=== PATIENT | male | born 1935 | race Asian ===

== ENCOUNTER 2017-08-20 23:29 | Inpatient (IN) | payer OTHER ==
[2017-08-21] MEDS: SOD CHLORIDE 0.9% 1,000 ML IV ×4 (00:27→19:07)
[2017-08-21] MEDS: PIPER-TAZO 3.375 GM IV (PMX) 50 ML IVPB (00:27)
[2017-08-21 00:35] LABS: ADD MAN DIFF? NO
[2017-08-21 00:48] LABS: BASOPHILS % 0.1 % (0.0-2.0); HEMATOCRIT 32.6 % (42.0-52.0); HEMOGLOBIN 11.4 g/dl (14.0-18.0); LYMPHOCYTES # 0.8 10^3/ul (0.8-2.9); LYMPHOCYTES % 5.7 % (15.0-51.0); MEAN CORPUSCULAR HEMOGLOBIN 30.4 pg (29.0-33.0); MEAN CORPUSCULAR VOLUME 86.9 fl (82.0-101.0); MEAN PLATELET VOLUME 8.8 fl (7.4-10.4); MONOCYTE # 1.2 10^3/ul (0.3-0.9); MONOCYTES % 8.7 % (0.0-11.0); NEUTROPHIL # 11.7 10^3/ul (1.6-7.5); NEUTROPHILS % 84.9 % (39.0-77.0); PLATELET COUNT 255 10^3/UL (140-415); RED BLOOD COUNT 3.75 10^6/ul (4.70-6.10); RED CELL DISTRIBUTION WIDTH 13.4 % (11.5-14.5)
[2017-08-21 00:48] LABS: WHITE BLOOD COUNT 13.8 10^3/ul (4.8-10.8)
[2017-08-21 00:58] LABS: INR 0.89; PROTIME 12.1 Sec (11.9-14.9); PT RATIO 0.9
[2017-08-21 00:59] LABS: PARTIAL THROMBOPLASTIN TIME 25.2 Sec (25.0-35.0)
[2017-08-21 01:04] LABS: LACTIC ACID 2.2 mmol/L (0.5-2.0)
[2017-08-21 01:04] LABS: ALANINE AMINOTRANSFERASE 72 IU/L (13-69); ALBUMIN 3.8 g/dl (3.3-4.9); ALBUMIN/GLOBULIN RATIO 1.22; ALKALINE PHOSPHATASE 96 IU/L (42-121); ANION GAP 16 (8-16); ASPARTATE AMINO TRANSFERASE 55 IU/L (15-46); BILIRUBIN,INDIRECT 0.1 mg/dl (0-1.1); BILIRUBIN,TOTAL 0.1 mg/dl (0.2-1.3); BLOOD UREA NITROGEN 31 mg/dl (7-20); CALCIUM 8.9 mg/dl (8.4-10.2); CARBON DIOXIDE 23 mmol/L (21-31); CHLORIDE 96 mmol/L (97-110); CREATININE 0.82 mg/dl (0.61-1.24); GLUCOSE 102 mg/dl (70-220); SODIUM 131 mmol/L (135-144); TOTAL PROTEIN 6.9 g/dl (6.1-8.1)
[2017-08-21 01:15] LABS: B-TYPE NATRIURETIC PEPTIDE 528 PG/ML (0-450)
[2017-08-21 01:27] LABS: TROPONIN-I < 0.012 ng/ml (0.00-0.12)
[2017-08-21 03:34] LABS: ADD UMIC NO; UR ASCORBIC ACID NEGATIVE (NEGATIVE); UR BILIRUBIN (Dip) NEGATIVE (NEGATIVE); UR BLOOD (Dip) NEGATIVE (NEGATIVE); UR CLARITY CLEAR (CLEAR); UR COLOR YELLOW (YELLOW); UR GLUCOSE (Dip) NEGATIVE (NEGATIVE); UR KETONES (Dip) NEGATIVE (NEGATIVE); UR LEUKOCYTE ESTERASE (Dip) NEGATIVE Leu/ul (NEGATIVE); UR NITRITE (Dip) NEGATIVE (NEGATIVE); UR SPECIFIC GRAVITY (Dip) 1.017 (1.003-1.030); UR TOTAL PROTEIN (Dip) NEGATIVE (NEGATIVE); UR UROBILINOGEN (Dip) NEGATIVE (NEGATIVE)
[2017-08-21 03:38] LABS: LACTIC ACID 1.1 mmol/L (0.5-2.0)
[2017-08-21] MEDS ORDERED: ACETAMINOPHEN 325 MG TAB PO ×2 (04:00)
[2017-08-21] MEDS ORDERED: morphine 2 MG INJ IV (04:00)
[2017-08-21] MEDS ORDERED: QUETIAPINE 25 MG TAB PO (04:00)
[2017-08-21] MEDS ORDERED: ONDANSETRON 4 MG INJ IV ×2 (04:00)
[2017-08-21] MEDS ORDERED: VANCOMYCIN IV PER PHARMACY XX (04:00)
[2017-08-21] MEDS: IPRATROPIUM (NEB) 0.5 MG/2.5 ML AMP HHN (04:09)
[2017-08-21] MEDS: ALBUTEROL 0.083% (NEB) 2.5 MG/3 ML AMP HHN (04:09)
[2017-08-21] MEDS: CEFTRIAXONE 1 GM/50 ML (PMX) 50 ML IVPB (05:00)
[2017-08-21] MEDS ORDERED: NITROGLYCERIN (SL) 0.4 MG TAB (05:01)
[2017-08-21] MEDS: NITROGLYCERIN (SL) 0.4 MG TAB SL (05:06)
[2017-08-21 09:11] LABS: CREATINE KINASE 141 IU/L (23-200)
[2017-08-21 09:11] LABS: LACTIC ACID 1.1 mmol/L (0.5-2.0)
[2017-08-21 09:21] LABS: AMMONIA < 9 umol/l (9-30)
[2017-08-21 09:24] LABS: CK INDEX 4.8
[2017-08-21 09:25] LABS: CK-MB 6.81 ng/ml (0.0-2.4); TROPONIN-I < 0.012 ng/ml (0.00-0.12)
[2017-08-21] MEDS: VANCOMYCIN 1 GM in 250 ML IVPB (09:36)
[2017-08-21] MEDS: metroNIDAZOLE 500 MG/NS (PMX) 100 ML IVPB (09:37)
[2017-08-21] MEDS: AZITHROMYCIN 250 MG TAB PO (10:54)
[2017-08-21] MEDS ORDERED: ALBUTEROL 0.083% (NEB) 2.5 MG/3 ML AMP HHN (12:00)
[2017-08-21] MEDS: ALBUTEROL/IPRATROPIUM (NEB) 3 ML AMP HHN ×2 (13:24→20:17)
[2017-08-21 15:03] LABS: CREATINE KINASE 136 IU/L (23-200)
[2017-08-21 15:13] LABS: CK INDEX 5.1
[2017-08-21 15:20] LABS: CK-MB 6.92 ng/ml (0.0-2.4); TROPONIN-I < 0.012 ng/ml (0.00-0.12)
[2017-08-21] MEDS: predniSONE 20 MG TAB PO (17:58)
[2017-08-21] MEDS: LOSARTAN 50 MG TAB PO (23:10)
[2017-08-22] MEDS: ALBUTEROL/IPRATROPIUM (NEB) 3 ML AMP HHN ×3 (01:44→14:11)
[2017-08-22] MEDS: SOD CHLORIDE 0.9% 1,000 ML IV ×3 (05:24→06:04)
[2017-08-22] MEDS ORDERED: VANCOMYCIN 750 MG in DEXTROSE 5% 150 ML IVPB (07:00)
[2017-08-22 07:51] LABS: ADD MAN DIFF? NO
[2017-08-22 08:02] LABS: BASOPHILS % 0.2 % (0.0-2.0); EOSINOPHILS % 0.2 % (0.0-7.0); HEMATOCRIT 30.7 % (42.0-52.0); HEMOGLOBIN 10.7 g/dl (14.0-18.0); LYMPHOCYTES # 0.8 10^3/ul (0.8-2.9); LYMPHOCYTES % 13.9 % (15.0-51.0); MEAN CORPUSCULAR HEMOGLOBIN 30.4 pg (29.0-33.0); MEAN CORPUSCULAR HGB CONC 34.9 g/dl (32.0-37.0); MEAN CORPUSCULAR VOLUME 87.2 fl (82.0-101.0); MEAN PLATELET VOLUME 8.9 fl (7.4-10.4); MONOCYTE # 0.6 10^3/ul (0.3-0.9); MONOCYTES % 10.6 % (0.0-11.0); NEUTROPHIL # 4.1 10^3/ul (1.6-7.5); NEUTROPHILS % 73.8 % (39.0-77.0); PLATELET COUNT 231 10^3/UL (140-415); RED BLOOD COUNT 3.52 10^6/ul (4.70-6.10); RED CELL DISTRIBUTION WIDTH 13.5 % (11.5-14.5)
[2017-08-22 08:02] LABS: WHITE BLOOD COUNT 5.5 10^3/ul (4.8-10.8)
[2017-08-22] MEDS: predniSONE 20 MG TAB PO (08:23)
[2017-08-22] MEDS: AZITHROMYCIN 250 MG TAB PO (08:23)
[2017-08-22] MEDS: ASPIRIN 81 MG TAB PO (08:23)
[2017-08-22] MEDS: CLOPIDOGREL 75 MG TAB PO (08:23)
[2017-08-22] MEDS: LOSARTAN 50 MG TAB PO (08:24)
[2017-08-22 08:30] LABS: ANION GAP 13 (8-16); BLOOD UREA NITROGEN 12 mg/dl (7-20); CALCIUM 7.7 mg/dl (8.4-10.2); CARBON DIOXIDE 24 mmol/L (21-31); CHLORIDE 103 mmol/L (97-110); CREATININE 0.61 mg/dl (0.61-1.24); GLUCOSE 96 mg/dl (70-220); POTASSIUM 3.8 mmol/L (3.5-5.1); SODIUM 136 mmol/L (135-144)
[2017-08-22] MEDS ORDERED: TAMSULOSIN (SR) 0.4 MG CAP PO (21:00)
[2017-08-22] MEDS ORDERED: MONTELUKAST 10 MG TAB PO (21:00)
[2017-08-22] MEDS ORDERED: ATORVASTATIN 20 MG TAB PO (21:00)
[2017-08-23] MEDS ORDERED: INFLUENZA VIRUS VACCINE 0.5 ML (DISPENSING) IM* (09:00)
== END 2017-08-22 16:15 | disposition home or self-care (01) | DRG 948 ==
LOC: E/R 23:29 → MS3 08-21 03:45 → TEL 08-21 18:34
PROVIDERS: Legal Medicine
DX: R41.82 Altered mental status, unspecified (principal); J96.10 Chronic respiratory failure, unspecified whether with hypoxia or hypercapnia; Z99.81 Dependence on supplemental oxygen; J44.9 Chronic obstructive pulmonary disease, unspecified; T42.4X5A Adverse effect of benzodiazepines, initial encounter
CPT/HCPCS: 36415; 70450; 70551; 71045; 80048; 80053; 81003; 82140; 82550; 82553; 82962; 83605; 83880; 84484; 85025; 85610; 85730; 87040; 87081; 87086; 87400; 93005; 93306; 93880; 94640; 94664; 96374; 96375; 99291-25

== ENCOUNTER 2018-04-29 10:48 | Emergency (ER) | payer OTHER, MEDICARE ==
[2018-04-29 12:24] LABS: ADD MAN DIFF? NO
[2018-04-29 12:28] LABS: BASOPHIL # 0.1 10^3/ul (0.0-0.1); BASOPHILS % 0.8 % (0.0-2.0); EOSINOPHILS # 0.2 10^3/ul (0.0-0.5); EOSINOPHILS % 2.7 % (0.0-7.0); HEMATOCRIT 37.4 % (42.0-52.0); HEMOGLOBIN 12.6 g/dl (14.0-18.0); LYMPHOCYTES # 1.6 10^3/ul (0.8-2.9); LYMPHOCYTES % 22.8 % (15.0-51.0); MEAN CORPUSCULAR HEMOGLOBIN 30.8 pg (29.0-33.0); MEAN CORPUSCULAR HGB CONC 33.7 g/dl (32.0-37.0); MEAN CORPUSCULAR VOLUME 91.4 fl (82.0-101.0); MEAN PLATELET VOLUME 8.5 fl (7.4-10.4); MONOCYTE # 0.6 10^3/ul (0.3-0.9); MONOCYTES % 8.7 % (0.0-11.0); NEUTROPHIL # 4.6 10^3/ul (1.6-7.5); NEUTROPHILS % 64.7 % (39.0-77.0); PLATELET COUNT 203 10^3/UL (140-415); RED BLOOD COUNT 4.09 10^6/ul (4.70-6.10); RED CELL DISTRIBUTION WIDTH 13.4 % (11.5-14.5)
[2018-04-29 12:28] LABS: WHITE BLOOD COUNT 7.1 10^3/ul (4.8-10.8)
[2018-04-29] MEDS: SOD CHLORIDE 0.9% 500 ML IV (12:37)
[2018-04-29 12:49] LABS: ALANINE AMINOTRANSFERASE 33 IU/L (13-69); ALBUMIN 3.8 g/dl (3.3-4.9); ALBUMIN/GLOBULIN RATIO 1.18; ALKALINE PHOSPHATASE 63 IU/L (42-121); ANION GAP 15 (8-16); ASPARTATE AMINO TRANSFERASE 39 IU/L (15-46); BILIRUBIN,INDIRECT 0.6 mg/dl (0-1.1); BILIRUBIN,TOTAL 0.6 mg/dl (0.2-1.3); BLOOD UREA NITROGEN 17 mg/dl (7-20); CALCIUM 8.7 mg/dl (8.4-10.2); CARBON DIOXIDE 22 mmol/L (21-31); CHLORIDE 103 mmol/L (97-110); CREATININE 0.77 mg/dl (0.61-1.24); GLUCOSE 83 mg/dl (70-220); POTASSIUM 4.2 mmol/L (3.5-5.1); SODIUM 136 mmol/L (135-144)
[2018-04-29 12:59] LABS: B-TYPE NATRIURETIC PEPTIDE 158 PG/ML (0-450); TROPONIN-I < 0.012 ng/ml (0.000-0.120)
[2018-04-29] MEDS: ALBUTEROL 0.083% (NEB) 2.5 MG/3 ML AMP HHN (13:36)
[2018-04-29 13:49] LABS: ADD UMIC NO; UR ASCORBIC ACID NEGATIVE (NEGATIVE); UR BILIRUBIN (Dip) NEGATIVE (NEGATIVE); UR BLOOD (Dip) NEGATIVE (NEGATIVE); UR CLARITY CLEAR (CLEAR); UR COLOR YELLOW (YELLOW); UR GLUCOSE (Dip) NEGATIVE (NEGATIVE); UR KETONES (Dip) NEGATIVE (NEGATIVE); UR LEUKOCYTE ESTERASE (Dip) NEGATIVE Leu/ul (NEGATIVE); UR NITRITE (Dip) NEGATIVE (NEGATIVE); UR SPECIFIC GRAVITY (Dip) 1.012 (1.003-1.030); UR TOTAL PROTEIN (Dip) NEGATIVE (NEGATIVE); UR UROBILINOGEN (Dip) NEGATIVE (NEGATIVE)
== END 2018-04-29 15:21 | disposition home or self-care (01) ==
LOC: E/R 10:48
DX: J44.1 Chronic obstructive pulmonary disease with (acute) exacerbation (principal); D64.9 Anemia, unspecified; Z79.01 Long term (current) use of anticoagulants; Z79.82 Long term (current) use of aspirin; Z87.891 Personal history of nicotine dependence
CPT/HCPCS: 36415; 71045; 80053; 81003; 83880; 84484; 85025; 93005; 94664; 99285-25